=== PATIENT | female | born 1955 | race Caucasian/White ===

== ENCOUNTER 2018-09-07 02:27 | Outpatient (CLI) | payer BC, SELFPAY ==
[2018-09-07 11:45] LABS: Anion Gap 7.4 mmol/L (3-11); BUN 13 mg/dL (7-18); CO2 29.6 mmol/L (21.0-32.0); Calcium 9.1 mg/dL (8.5-10.1); Chloride 103 mmol/L (98-107); Cholesterol 244 mg/dL (50-200); Glucose 90 mg/dL (70-100); HDL Cholesterol 51 mg/dL (40-60); LDL CHOLESTEROL 166 mg/dL (<100); Sodium 140 mmol/L (136-145); Triglyceride 129 mg/dL (30-150)
== END 2018-09-07 02:47 ==
PROVIDERS: PCP Nurse Practitioner Family; Visit Provider Nurse Practitioner Family
DX: Z00.00 Encounter for general adult medical examination without abnormal findings (principal); E78.5 Hyperlipidemia, unspecified; J45.30 Mild persistent asthma, uncomplicated
CPT/HCPCS: 36415; 80048; 80061; 83721

== ENCOUNTER 2019-02-15 01:46 | Outpatient (CLI) | payer BC, SELFPAY ==
--- NOTE | 2019-02-15 06:58 | DI.MAMMO_ITS ---
SYMPTOM/DIAGNOSIS: SCREENING, Z12.31 MAMMOGRAMS: Mammograms were interpreted according to the usual protocol including computer analysis with CAD system, tomosynthesis and C view imaging. Comparison is made with exams from [id number]. The breasts are composed of fatty density tissue, breast density, Category A. No suspicious masses or suspicious microcalcifications are seen. There has been no significant change. IMPRESSION: Category1, negative mammogram. Yearly screening mammography is recommended. SA ASSESSMENT OF FINDINGS: Negative. Category 1. Patient will receive a letter notifying them of these results. bBI-RAD category A. The breasts are almost entirely fatty.
== END 2019-02-15 02:06 ==
PROVIDERS: PCP Nurse Practitioner Family; Visit Provider Nurse Practitioner Family
DX: Z12.31 Encounter for screening mammogram for malignant neoplasm of breast (principal)
CPT/HCPCS: 77063; 77067

== ENCOUNTER 2019-09-02 09:13 | Outpatient (CLI) | payer BC, SELFPAY ==
[2019-09-02 10:21] LABS: Hemoglobin A1C 6.1 % (4.5-6.2)
[2019-09-02 13:08] LABS: Anion Gap 9.8 mmol/L (3-11); BUN 11 mg/dL (7-18); CO2 28.2 mmol/L (21.0-32.0); CREATININE 0.77 mg/dL (0.55-1.02); Calcium 9.1 mg/dL (8.5-10.1); Calculated LDL 167 mg/dL; Chloride 103 mmol/L (98-107); Cholesterol 247 mg/dL (<200); Glucose 101 mg/dL (74-106); HDL Cholesterol 52 mg/dL (40-60); Potassium 4.3 mmol/L (3.5-5.1); Sodium 141 mmol/L (136-145); Triglyceride 140 mg/dL (<150)
== END 2019-09-02 09:33 ==
PROVIDERS: PCP Nurse Practitioner Family; Visit Provider Nurse Practitioner Family
DX: E78.5 Hyperlipidemia, unspecified (principal)
CPT/HCPCS: 36415; 80048; 80061; 83036

== ENCOUNTER 2019-09-27 10:52 | Outpatient (REF) | payer BC, SELFPAY ==
--- NOTE | 2019-09-27 10:30 | PAPFT_PTH ---
PATIENT: Kesha Lagos LOC: [facility] U#:[id number] AGE/SX: 63/F ROOM: RE09/27/[address]: RAFA Armstrong : 1955 BED: DIS: 09/27/2019 SPEC #: [id number] RECD: 09/27/19 13:03 STATUS: BUD REPavan #: [id number] RANDALL: 09/27/19 10:[address]: Adenike Harrell DEPT: [facility] Cytology RECD BY: Miladis Morel ENTERED: 09/27/19 13:03 SP TYPE: PAPFT OTHR DR: RAFA Cruz Tissues: 1 - CX/ENDOCX FOR PAP SMEARS Procedures: PAP THIN PREP/UVM Screening HPV DNA PROBE Comments: [id number]
== END 2019-09-27 11:12 ==
LOC: LBN 10:52
PROVIDERS: PCP Nurse Practitioner Family; Visit Provider Nurse Practitioner Family
DX: Z12.4 Encounter for screening for malignant neoplasm of cervix (principal); Z11.51 Encounter for screening for human papillomavirus (HPV)
CPT/HCPCS: 88142; 87624

== ENCOUNTER 2019-11-30 02:06 | Outpatient (CLI) | payer BC, SELFPAY ==
--- NOTE | 2019-11-30 14:28 | DI.CT_ITS ---
EXAM: CT SINUS WO CLINICAL HISTORY: NASAL POLYP J33.9, HYPOSMIA R43.8 TECHNIQUE: Noncontrast Vormetric protocol COMPARISON: No exams were available for comparison FINDINGS: There is circumferential mucosal thickening of both maxillary sinuses. There is opacification of mult iple ethmoid sinuses. The frontal and sphenoid sinuses are unremarkable. There are nasal polyps and t hickening of the nasal mucosa. The orbits are unremarkable. No gross abnormalities seen in the visua lized portions of the brain. The mastoid air cells appear clear. IMPRESSION: Nasal polyps. Ethmoid and maxillary chronic sinus disease.
== END 2019-11-30 02:26 ==
PROVIDERS: PCP Nurse Practitioner Family; Visit Provider Otolaryngology Otolaryngology/Facial Plastic Surgery
DX: J33.9 Nasal polyp, unspecified (principal); R43.8 Other disturbances of smell and taste; J32.2 Chronic ethmoidal sinusitis; J32.0 Chronic maxillary sinusitis
CPT/HCPCS: 70486

== ENCOUNTER 2020-02-17 02:03 | Outpatient (CLI) | payer BC, SELFPAY ==
--- NOTE | 2020-02-17 07:45 | DI.MAMMO_ITS ---
EXAM: MG MAMMO SCREENING CLINICAL HISTORY: Z12.39 TECHNIQUE: Bilateral full field digital CC and MLO mammographic images were obtained with 3D tomosyn thesis and utilizing computer aided detection (CAD). COMPARISON: Available for comparison. FINDINGS: Masses/Architectural Distortion: None seen. Microcalcifications: No suspicious pleomorphic-type are seen. Skin Thickening/Nipple Retraction: None. IMPRESSION: 1. No significant interval change with no specific features of malignancy noted. 2. Unless there is more urgent need, screening mammography is recommended, as per [place] [employer] guidelines. BI-RADS Category 1 - Negative Breast Density - Category A - Almost entirely fatty A negative radiographic report should not delay biopsy if a dominant or clinically suspicious mass is present. Up to ten percent of cancers are not identified on mammography. A negative report may reinforce clinical impression. Adenosis and dense breasts may obscure an underlying neoplasm. False positive reports average 6 to 10%. Patient will receive a letter notifying them of these results.
== END 2020-02-17 02:23 ==
PROVIDERS: PCP Nurse Practitioner Family; Visit Provider Nurse Practitioner Family
DX: Z12.31 Encounter for screening mammogram for malignant neoplasm of breast (principal)
CPT/HCPCS: 77063; 77067

== ENCOUNTER 2020-03-28 02:46 | Outpatient (CLI) | payer BC, SELFPAY ==
[2020-03-29 23:47] LABS: Alternaria Tenuis IgE <0.35 kU/L; Aspergillus Fumigatus IgE <0.35 kU/L; Bermuda Grass IgE <0.35 kU/L; Cockroach IgE <0.35 kU/L; Cottonwood IgE <0.35 kU/L; D Farinae IgE 1.82 kU/L; D Pteronyssinus IgE 1.47 kU/L; Eastern Sycamore IgE <0.35 kU/L; Elm IgE <0.35 kU/L; Epicoccum purpurascens IgE <0.35 kU/L; Giant Ragweed IgE <0.35 kU/L; Oak IgE <0.35 kU/L; Penicillium chrysogenum IgE <0.35 kU/L; Red Sorrel IgE <0.35 kU/L; Rough Pigweed IgE <0.35 kU/L; Silver Birch IgE 5.57 kU/L; Stemphyllium IgE <0.35 kU/L; Walnut Tree IgE <0.35 kU/L
[2020-03-30 17:27] LABS: Cat Epithelium IgE <0.35 kU/L; Cladosporium IgE <0.35 kU/L; Cocklebur IgE <0.35 kU/L; Dog Dander IgE <0.35 kU/L; Lamb's Quarter IgE <0.35 kU/L; Short Ragweed IgE <0.35 kU/L; Timothy Grass IgE <0.35 kU/L; Wormwood IgE <0.35 kU/L
[2020-04-05 18:14] LABS: CLASS 0; Cedar Red IgE <0.10 kU/L (<0.35); Fusarium oxysporum/vasinfectum <0.35 kU/L (<0.35); Rhodotorula IgE <0.35 kU/L (<0.35)
== END 2020-03-28 03:06 ==
PROVIDERS: PCP Nurse Practitioner Family; Visit Provider Otolaryngology Otolaryngology/Facial Plastic Surgery
DX: J45.40 Moderate persistent asthma, uncomplicated (principal)
CPT/HCPCS: 36415; 86003

== ENCOUNTER 2020-09-14 20:51 | Outpatient (REF) | payer BC, SELFPAY ==
[2020-09-14 14:49] LABS: Anion Gap 5.4 mmol/L (3-11); BUN 12 mg/dL (7-18); CO2 28.6 mmol/L (21.0-32.0); CREATININE 0.83 mg/dL (0.55-1.02); Calcium 9.1 mg/dL (8.5-10.1); Calculated LDL 170 mg/dL (<100); Chloride 105 mmol/L (98-107); Cholesterol 256 mg/dL (<200); Glucose 107 mg/dL (74-106); HDL Cholesterol 55 mg/dL (40-60); Potassium 4.7 mmol/L (3.5-5.1); Sodium 139 mmol/L (136-145); Triglyceride 155 mg/dL (<150)
[2020-09-14 16:39] LABS: Hemoglobin A1C 5.6 % (<5.7)
== END 2020-09-14 21:11 ==
LOC: LBN 20:51
PROVIDERS: PCP Nurse Practitioner Family; Visit Provider Nurse Practitioner Family
DX: E78.5 Hyperlipidemia, unspecified (principal); R73.03 Prediabetes
CPT/HCPCS: 80048; 80061; 83036

== ENCOUNTER 2021-02-19 00:53 | Outpatient (CLI) | payer BC, SELFPAY ==
--- NOTE | 2021-02-19 06:30 | DI.MAMMO_ITS ---
Exam(s) MAMMO SCREENING EXAM: MAMMO SCREENING CLINICAL HISTORY: screening,z12.39. TECHNIQUE: Bilateral full field digital CC and MLO mammographic images were obtained with 3D tomosyn thesis and utilizing computer aided detection (CAD). COMPARISON: Prior mammograms dating back to 2011, the most recent being January 2020. FINDINGS: There are no new spiculated masses nor malignant appearing microcalcification groups. There is no significant architectural distortion nor skin thickening-retraction. IMPRESSION: No radiographic evidence of malignancy. BI-RADS Category 1 - Negative Breast Density - Category A - Almost entirely fatty Breast density Category C or D implies that the patient has dense breast tissue. Dense breast tissue can make it harder to find cancer on a mammogram. Dense breast tissue is also associated with an incr eased risk of breast cancer. This information about the result of the mammogram report was provided to the patient to raise their awareness. Use this report when you speak with the patient about their risks for breast cancer, which includes their family history. At that time, you may recommend additional screening tests (Ultrasoun d or MRI) as these tests may add significant information. A negative radiographic report should not delay biopsy if a dominant or clinically suspicious mass is present. Up to ten percent of cancers are not identified on mammography. A negative report may reinforce clinical impression. Adenosis and dense breasts may obscure an underlying neoplasm. False positive reports average 6 to 10%. Patient will receive a letter notifying them of these results.
== END 2021-02-19 01:13 ==
PROVIDERS: PCP Nurse Practitioner Family; Visit Provider Nurse Practitioner Family
DX: Z12.31 Encounter for screening mammogram for malignant neoplasm of breast (principal)
CPT/HCPCS: 77063; 77067

== ENCOUNTER 2021-09-03 19:17 | Outpatient (REF) | payer BC, SELFPAY ==
[2021-09-05 17:20] LABS: COVID-19 RT-PCR UVMMC Result Negative (Negative)
== END 2021-09-03 19:18 | disposition home or self-care (01) ==
LOC: LBN 19:17
PROVIDERS: PCP Nurse Practitioner Family; Visit Provider Family Medicine
DX: Z20.822 Contact with and (suspected) exposure to COVID-19 (principal); R50.9 Fever, unspecified
CPT/HCPCS: U0003

== ENCOUNTER 2021-10-31 03:30 | Outpatient (CLI) | payer BC, SELFPAY ==
[2021-10-31 10:08] LABS: Anion Gap 11.2 mmol/L (3-11); BUN 10 mg/dL (7-18); CO2 25.8 mmol/L (21.0-32.0); CREATININE 0.8 mg/dL (0.55-1.02); Calcium 9.2 mg/dL (8.5-10.1); Calculated LDL 133 mg/dL (<100); Chloride 104 mmol/L (98-107); Cholesterol 212 mg/dL (<200); Glucose 95 mg/dL (74-106); HDL Cholesterol 47 mg/dL (40-60); Potassium 4.1 mmol/L (3.5-5.1); Sodium 141 mmol/L (136-145); Triglyceride 164 mg/dL (<150)
== END 2021-10-31 03:31 | disposition home or self-care (01) ==
LOC: LBO 03:30
PROVIDERS: PCP Nurse Practitioner Family; Visit Provider Nurse Practitioner Family
DX: E78.5 Hyperlipidemia, unspecified (principal)
CPT/HCPCS: 36415; 80048; 80061

== ENCOUNTER 2022-02-20 03:39 | Outpatient (CLI) | payer BC, SELFPAY ==
--- NOTE | 2022-02-20 07:44 | DI.MAMMO_ITS ---
Exam(s) MAMMO SCREENING EXAM: MAMMO SCREENING CLINICAL HISTORY: screening, Z12.39 TECHNIQUE: Bilateral full field digital CC and MLO mammographic images were obtained with 3D tomosyn thesis and utilizing computer aided detection (CAD). COMPARISON: Available for comparison. FINDINGS: Masses/Architectural Distortion: None seen. Microcalcifications: No suspicious pleomorphic-type are seen. Skin Thickening/Nipple Retraction: None. IMPRESSION: 1. No significant interval change with no specific features of malignancy noted. 2. Unless there is more urgent need, screening mammography is recommended, as per [place] [employer] guidelines. BI-RADS Category 1 - Negative Breast Density - Category A - Almost entirely fatty Breast density category C or D implies that the patient has dense breast tissue. Dense breast tissue is very common and is not abnormal but dense breast tissue can make it harder to find cancer on a ma mmogram. Also, dense breast tissue may increase their breast cancer risk. This information about the result of the mammogram report was provided to the patient to raise their awareness. Use this report when you speak with the patient about their risks for breast cancer, which includes their family hist ory. At that time, you may recommend for more screening tests (Ultrasound or MRI) as they might be us eful based on their risk. A negative radiographic report should not delay biopsy if a dominant or clinically suspicious mass is present. Up to ten percent of cancers are not identified on mammography. A negative report may reinforce clinical impression. Adenosis and dense breasts may obscure an underlying neoplasm. False positive reports average 6 to 10%. Patient will receive a letter notifying them of these results.
== END 2022-02-20 03:59 ==
PROVIDERS: PCP Nurse Practitioner Family; Visit Provider Nurse Practitioner Family
DX: Z12.31 Encounter for screening mammogram for malignant neoplasm of breast (principal)
CPT/HCPCS: 77063; 77067

== ENCOUNTER 2022-07-29 08:55 | Day surgery (SDC) | payer BC, SELFPAY ==
--- NOTE | 2022-07-29 06:42 | W.COLOREPORT ---
Date of service: 07/29/22 Time of Service: 11:08 Colonoscopy Report Date of procedure: 07/29/22 Pre-op diagnosis general: colon cancer screening Post-op diagnosis procedure note: same Procedure: Colonoscopy Surgeon: Carrie Ha Anesthesia Type: General:No Airway Estimated blood loss (mL): 0 Pathology: none sent Complications: None Disposition: same day Indications: The patient? is a pleasant ? 66-year-old female who is here to discuss another screening colonoscopy. ? Her last colonoscopy was in 2009 and was normal.? She denies any changes in bowel habits, melena, hematochezia, unintentional weight loss or family history of colon cancer.? The procedure and risks were discussed.? The prep was reviewed in detail.? Risks, benefits and complications have been reviewed. Complications include but are not limited to bleeding, pain, perforation, missed small lesion/polyp, sore throat, aspiration and adverse reaction to the medications. Questions were entertained and answered to their satisfaction and they wished to proceed. No guarantees were given or implied. Prep: Miralax/Dulcolax Procedure Start Time: :08 Procedure End Time: :24 Retraction Time: 9 minutes Findings: Normal colon Procedure Description: After informed consent was obtained the patient was taken to the procedure room and placed in a left decubitous position. Monitors were applied and a time out was done. The patients name, date of , procedure, allergies to medications and metal in their body was reviewed. The patient was then sedated. Once sedated and comfortable a rectal exam was done. External exam was normal. Internal exam revealed a normal sphincter tone and no palpable masses. The scope was then introduced and retro-flexed. No internal hemorrhoids, polyps or masses were identified on retro-flexion. The scope was then advanced to the cecum without difficulty. The ileocecal vlave and appendiceal orifice were identified. The prep was adequate. The scope was then slowly retracted over 9 minutes back into the rectum. There were no polyps. There was no diverticulosis noted. The scope was removed and the patient was woken up and taken back to Same day surgery in stable condition. The patient tolerated the procedure well and there were no immediate complications. Follow up: The patient should follow up in 10 years unless they develop changes in bowel habits or other new gastrointestinal complaints.
--- NOTE | 2022-07-29 06:43 | W.PM.DSUDISC ---
Date of service: 07/29/22 Time of Service: 11:08 Discharge Plan Disposition Patient Disposition: HOME Condition: Good Discharge Details Reason For Visit: colonoscopy Attending Provider: Carrie Ha Primary Care Provider: Farnaz Riddle Home Meds and New Rx's Prescriptions: Continued fluticasone propionate [Flovent HFA] 110 mcg/actuation HFA aerosol inhaler 1 puff Inhalation BID Qty: 12 6RF albuterol sulfate 90 mcg/actuation HFA aerosol inhaler 2 puff Inhalation Q4H PRN Qty: 8.5 4RF albuterol sulfate 2.5 mg /3 mL (0.083 %) solution for nebulization 2.5 mg IH Q6H PRN (Reason: shortness of breath or wheezing) Qty: 90 4RF fluticasone propionate [Allergy Relief (fluticasone)] 50 mcg/actuation spray,suspension 2 spray intranasal DAILY PRN Rx Instructions: administer into each nostril Discontinued polyethylene glycol 3350 17 gram/dose powder 238 g PO ONCE Qty: 238 0RF Rx Instructions: take per colonoscopy instructions bisacodyl [Dulcolax (bisacodyl)] 5 mg tablet,delayed release (DR/EC) 5 mg PO ONCE Qty: 4 0RF Rx Instructions: take per colonoscopy instructions Discharge Instructions Additional Instructions: Findings: Normal Follow up: 10 years Please call if you develop: fevers >101.5 Nausea or Vomiting Abdominal pain that is not transient Rectal bleeding that is more then a tbsp A hard abdomen and inability to pass gas DAY SURGERY UNIT POST ENDOSCOPY INSTRUCTIONS Instructions for everyone who is given Anesthesia: For your safety, please do the following for the next 24 Hours: a. Do not drive or operate dangerous equipment b. Do not drink alcohol beverages or use any recreational drugs for the first 24 hours or while taking pain medications. The medications in your body may have a reaction that can be dangerous. c. Do not make any important decisions or sign any important papers 1. Generally there are no restrictions on your activity after a day or so has gone by, but you may feel a bit fatigued for a few days. 2. After you arrive home you may have a light meal and return to a normal diet as you can tolerate it without feeling sick to your stomach. 3. After surgery, you may feel pain or discomfort. This should be only transient, but if it persists please contact your doctor. 4. If there are any questions regarding the findings of your procedure, please feel free to contact your doctor. 6. If you are unable to contact your doctor with a problem, contact the hospital at [phone]. 7. Continue all your regular medications unless directed otherwise. I understand the above instructions and have no questions. Signature of Patient or Responsible Adult Escort Date/Time Name of Responsible Adult Escort Signature of Nurse Date/Time Activity:: Activity as Tolerated Diet:: As Tolerated Discharge Orders Discharge Orders: Discharge Order (Routine); Ordered 07/29/22 Ordered By: Carrie Ha
[2022-07-29 09:23] VITALS: BP 158/99; PULSE 89; RESP 16; TEMP 36.4; O2SAT 98
[2022-07-29] MEDS: Lactated Ringers 1,000 ML 80 ML IV (09:34)
--- NOTE | 2022-07-29 10:26 | W.ANESPRE ---
General Info Date of Service Date Performed: 07/29/22 Height: 5 ft 2 in Weight: 69.1 kg Body Mass Index (BMI): 27.8 Surgical Procedure: Operation Date: 07/29/22 10:35 Proposed Procedure Side Surgeon p Colonoscopy Carrie Ha MD Meds Allergies and Home Medications Allergies Allergy/AdvReac Type Severity Reaction Status Date / Time varicella-zoster virus Allergy Intermediate Face Verified 07/29/22 09:32 glycoprotein E, recombinant Numbness Latex, Natural Rubber Allergy Mild Verified 07/29/22 09:32 Home Medication Medication Instructions Recorded albuterol sulfate 2.5 mg/3 mL 2.5 mg (3 mL) inhalation Q6H PRN 09/02/19 (0.083 %) solution for nebulization shortness of breath or wheezing #90 mL fluticasone propionate 50 2 spray intranasal DAILY PRN 09/24/21 mcg/actuation nasal spray,suspension (Allergy Relief (fluticasone)) bisacodyl 5 mg tablet,delayed 5 mg PO ONCE colonscopy bowel prep 07/09/22 release (Dulcolax (bisacodyl)) #4 tabs polyethylene glycol 3350 17 238 g PO ONCE colonoscopy prep 07/09/22 gram/dose oral powder #238 grams albuterol sulfate 90 mcg/actuation 2 puff inhalation Q4H PRN #8.5 07/18/22 aerosol inhaler grams fluticasone propionate 110 1 puff inhalation BID #12 grams 07/18/22 mcg/actuation HFA aerosol inhaler (Flovent HFA) Current Visit Medications: Current Medications Generic Name Dose Route Start Last Admin Trade Name Freq PRN Reason Stop Dose Admin Hyoscyamine Sulfate 0.125 mg 07/29/22 06:44 Hyoscyamine 0.125 Mg Sl/Oral/Chew SL DIRECTED PRN Ringer's Solution 1,000 mls @ 80 mls/hr 07/29/22 06:00 07/29/22 09:34 IV 08/25/22 23:59 80 mls/hr INFUSION JESSA Administration IV Miscellaneous Supplies 1 each 07/29/22 06:00 Iv Access IV 08/25/22 23:59 DIRECTED JESSA Ondansetron HCl 4 mg 07/29/22 06:44 Ondansetron 4 Mg/2 Ml Vial IVP Q4H PRN PRN Nausea / Vomiting Sodium Chloride 0 ml 07/29/22 06:00 Normal Saline Flush 10 Ml Syr IV 08/25/22 23:59 PRN PRN Sodium Chloride 0 ml 07/29/22 06:00 Normal Saline 10 Ml Vial IJ 08/25/22 23:59 DIRECTED PRN Sterile Water 0 ml 07/29/22 06:00 Water,Injection,Sterile 10 Ml Vial IJ 08/25/22 23:59 DIRECTED PRN PFSH Active Problems Active Problems: Problem Status Onset Code Nasal polyps J33.9 Chronic rhinitis J31.0 Mild persistent asthma J45.30 Hyperlipidemia E78.5 Medical History Medical History Essential hypertension Prediabetes Surgical History Surgical History S/P colonoscopy (08/29/10) S/P nasal septoplasty (02/06/04) With bilateral endoscopic anterior and posterior ethmoidectomies Tobacco Smoking/Tobacco Use Status: Never Passive smoking exposure: Yes Second hand exposure: Yes Alcohol Alcohol Intake: never Substance Use Substance use: Never Prental History History 3 Para 3 Hx # Term Pregnancies 3 Multiple births Hx # Pregnancies Ectopic pregnancies AB induced Hx Number of Living Children 2 AB spontaneous Vital Signs and Lab Results Vital Signs Most Recent Vital Signs in EMR: Most Recent Vital Signs Temp Pulse Resp BP Pulse Ox 36.4 C L 89 16 158/99 H 98 07/29/22 09:23 07/29/22 09:23 07/29/22 09:23 07/29/22 09:23 07/29/22 09:23 Lab Results Blood Type / Crossmatch: No Data to Display Complete Blood Count: No Data to Display Complete Metabolic Panel: No Data to Display Liver Function Panel: No Data to Display Coagulation Panel: No Data to Display Cardiac Panel: No Data to Display Arterial Blood Gas: No Data to Display Venous Blood Gas: No Data to Display Pancreas Panel: No Data to Display Thyroid Panel: No Data to Display Infectious Disease: No Data to Display Blood Cultures: No Data to Display Toxicology Panel: No Data to Display Anesthesia Assessment and Plan Anesthesia History Personal History: No History of Anesthesia Complications Family History: No Family History of Anesthesia Complications Exercise Tolerance Exercise Tolerance: Metabolic Equivalents>4 Pertinent Negatives Pertinent Negatives: No Symptoms of GERD Cardiac & Pulmonary Exam Cardiac Exam: Normal S1/S2 Heart Sounds Pulmonary Exam: Clear Bilateral Breath Sounds Implantable Cardiac Device Does patient have a Pacemaker or an ICD?: No Airway Exam Known Difficult Airway: No Mallampati Class: 1 Mouth Opening: Normal (> 3cm) Thyromental Distance: Greater than 3 cm Neck Range of Motion: Full ROM Neck Circumference: Normal Teeth Condition: Removable Dentures/Plates Upper ASA Classification ASA Score: ASA 2 Emergency Case?: No NPO Status NPO Status: NPO Clears >2 hours, Solids >8 hours Anesthesia Plan Resuscitation Status: Full Code Anesthesia Technique: General Anesthesia Airway Planned: Natural Airway Monitors Used: Standard Monitors
[2022-07-29 10:28] VITALS: BMI 27.8
[2022-07-29 11:30] VITALS: BP 127/89; PULSE 96; RESP 18; TEMP 36.3; O2SAT 96
[2022-07-29 11:48] VITALS: BP 128/97; PULSE 86; RESP 18; TEMP 36.5; O2SAT 99
--- NOTE | 2022-07-29 11:54 | W.ANESPOSTOP ---
Postoperative Evaluation Date, Time and Location Date Performed: 07/29/22 Time Performed: 11:52 Patient Location: Day Surgery Unit Vital Signs Most Recent Imported Vital Signs: Most Recent Vital Signs Temp Pulse Resp BP Pulse Ox 36.5 C 86 18 128/97 H 99 07/29/22 11:48 07/29/22 11:48 07/29/22 11:48 07/29/22 11:48 07/29/22 11:48 Pain Score Most Recent Pain Score: Most Recent Pain Score Pain Level 2 07/29/22 11:48 Assessment Mental Status: Awake (Alert & Oriented to Patient Baseline) Airway and Respiratory Function: Patent airway with normal (patient baseline) respiratory exam Cardiovascular Function: Hemodynamically Stable Hydration Status: Adequately Hydrated Nausea & Vomiting: No Nausea or Vomiting Pain: Pt. Denies Any Pain Peripheral Nerve Block: Patient did not receive a nerve block
== END 2022-07-29 11:54 | disposition home or self-care (01) ==
PROVIDERS: PCP Nurse Practitioner Family; Visit Provider Surgery
PROC: 0DJD8ZZ Inspection of Lower Intestinal Tract, Via Natural or Artificial Opening Endoscopic (ICD-10-PCS; CPT 45378; principal; 2022-07-29 10:30)
DX: Z12.11 Encounter for screening for malignant neoplasm of colon (principal)
CPT/HCPCS: 45378

== ENCOUNTER 2023-01-16 10:13 | Outpatient (CLI) | payer MEDICARE, SELFPAY ==
[2023-01-16 12:41] LABS: HCT 42.8 % (36.0-46.0); HGB 13.5 g/dL (11.2-15.7); MCH 28.5 pg (27.0-33.0); MCHC 31.5 % (32.0-36.0); MCV 91 fL (80-95); MPV 9.2 fL (8.0-11.0); Platelet Count 371 10^3/uL (130-400); RBC 4.73 10^6/uL (3.93-5.22); RDW 12.5 % (11.7-14.6); RDW-SD 41.1 fL; WBC 6.07 10^3/uL (4.4-10.8)
[2023-01-16 13:32] LABS: ALT 26 U/L (14-59); AST 17 U/L (15-37); Alkaline Phosphatase 107 U/L (46-116); Anion Gap 8.4 mmol/L (3-11); BUN 9 mg/dL (7-18); Bilirubin, Total 0.3 mg/dL (0.2-1.0); CO2 27.6 mmol/L (21.0-32.0); CREATININE 0.8 mg/dL (0.55-1.02); Calcium 8.9 mg/dL (8.5-10.1); Calculated LDL 142 mg/dL (<100); Chloride 104 mmol/L (98-107); Cholesterol 228 mg/dL (<200); Estimated GFR 81.72 (mL/min/1.73m2); Glucose 109 mg/dL (74-106); HDL Cholesterol 47 mg/dL (40-60); Potassium 4.4 mmol/L (3.5-5.1); Sodium 140 mmol/L (136-145); Total Protein 7.9 g/dL (6.4-8.2); Triglyceride 198 mg/dL (<150)
== END 2023-01-16 10:14 | disposition home or self-care (01) ==
LOC: LOS 10:13
PROVIDERS: PCP Nurse Practitioner Family; Referring Provider Nurse Practitioner Family; Visit Provider Nurse Practitioner Family
DX: I10 Essential (primary) hypertension (principal); E78.5 Hyperlipidemia, unspecified; J45.30 Mild persistent asthma, uncomplicated; J31.0 Chronic rhinitis
CPT/HCPCS: 36415; 80053; 80061; 85027

== ENCOUNTER 2023-02-10 09:54 | Outpatient (REF) | payer MEDICARE, SELFPAY ==
--- NOTE | 2023-02-10 09:00 | PAPFT_PTH ---
PATIENT: Kesha Lagos LOC: [facility] U#:[id number] AGE/SX: 67/F ROOM: RE02/10/[address]: Radha Weaver NP : 1955 BED: DIS: 02/10/2023 SPEC #: [id number] RECD: 02/10/23 13:20 STATUS: BUD REPavan #: [id number] RANDALL: 02/10/23 09:[address]: Meg HUERTA,Radha DEPT: [facility] Cytology RECD BY: Miladis Morel ENTERED: 02/10/23 13:21 SP TYPE: PAPFT OTHR DR: Farnaz Riddle, RAFA Tissues: 1 - CX/ENDOCX FOR PAP SMEARS Procedures: PAP THIN PREP/UVM Screening HPV DNA PROBE Comments: [id number]
== END 2023-02-10 09:55 | disposition home or self-care (01) ==
LOC: LBN 09:54
PROVIDERS: PCP Nurse Practitioner Family; Visit Provider Nurse Practitioner Women's Health
DX: Z11.51 Encounter for screening for human papillomavirus (HPV); Z01.419 Encounter for gynecological examination (general) (routine) without abnormal findings
CPT/HCPCS: 88142; 87624

== ENCOUNTER 2023-02-21 00:13 | Outpatient (CLI) | payer MEDICARE, SELFPAY ==
--- NOTE | 2023-02-21 06:30 | DI.MAMMO_ITS ---
Exam(s) MAMMO SCREENING EXAM: MAMMO SCREENING CLINICAL HISTORY: screening,z12.39. TECHNIQUE: Bilateral full field digital CC and MLO mammographic images were obtained with 3D tomosyn thesis and utilizing computer aided detection (CAD). COMPARISON: Prior mammograms were reviewed. FINDINGS: There has been no significant change in the appearance and distribution of the fibroglandular tissue. There are no new spiculated masses nor malignant appearing microcalcification groups. There is no significant architectural distortion nor skin thickening-retraction. IMPRESSION: No radiographic evidence of malignancy. BI-RADS Category 1 - Negative Breast Density - Category A - Almost entirely fatty Breast density Category C or D implies that the patient has dense breast tissue. Dense breast tissue can make it harder to find cancer on a mammogram. Dense breast tissue is also associated with an incr eased risk of breast cancer. This information about the result of the mammogram report was provided to the patient to raise their awareness. Use this report when you speak with the patient about their risks for breast cancer, which includes their family history. At that time, you may recommend additional screening tests (Ultrasoun d or MRI) as these tests may add significant information. A negative radiographic report should not delay biopsy if a dominant or clinically suspicious mass is present. Up to ten percent of cancers are not identified on mammography. A negative report may reinforce clinical impression. Adenosis and dense breasts may obscure an underlying neoplasm. False positive reports average 6 to 10%. Patient will receive a letter notifying them of these results.
== END 2023-02-21 00:33 ==
PROVIDERS: PCP Nurse Practitioner Family; Visit Provider Nurse Practitioner Family
DX: Z12.31 Encounter for screening mammogram for malignant neoplasm of breast (principal)
CPT/HCPCS: 77063; 77067

== ENCOUNTER 2023-04-04 01:18 | Outpatient (CLI) | payer MEDICARE, SELFPAY ==
--- NOTE | 2023-04-04 07:15 | DI.RAD_ITS ---
Exam(s) XR CHEST 2V PA LATERAL EXAM: XR CHEST 2V PA LATERAL CLINICAL HISTORY: cough, mild persistent asthma, J45.30 TECHNIQUE: 2D digital imaging was performed. COMPARISON: CR CHEST 2 VIEWS PA,LAT from 07/18/2015 FINDINGS: HEART: Normal size. Aorta: Not dilated. PULMONARY VASCULATURE: Normal. LUNGS: Mild fibrotic changes greater at the lung bases, otherwise clear. PLEURAL SPACE: No pleural effusion or pneumothorax. BONE:Unremarkable for age. IMPRESSION: No acute abnormality. DATA REPOSITORY: RADIATION DOSE DELIVERED:
== END 2023-04-04 01:38 ==
LOC: DI 01:18
PROVIDERS: PCP Nurse Practitioner Family; Visit Provider Physician Assistant
DX: J45.30 Mild persistent asthma, uncomplicated (principal)
CPT/HCPCS: 71046

== ENCOUNTER 2023-06-25 22:39 | Outpatient (REF) | payer MEDICARE, SELFPAY | END 2023-06-25 22:40 | disposition home or self-care (01) | LOC: LBN 22:39 | PROVIDERS: PCP Nurse Practitioner Family; Visit Provider Nurse Practitioner Family | DX: J02.9 Acute pharyngitis, unspecified (principal) | CPT/HCPCS: 87070 ==

== ENCOUNTER 2023-07-09 04:57 | Emergency (ER) | payer MEDICARE, SELFPAY ==
[2023-07-09] VITALS (9 sets, daily range): BP systolic 115–180; BP diastolic 89–142; PULSE 90–109; RESP 18–20; TEMP 36.6; O2SAT 92–100
--- NOTE | 2023-07-09 05:11 | ED.GENADUL_ITS ---
Discharge Plan Disposition Patient Disposition: Home Condition: Stable Discharge Details Clinical Impression: Asthma exacerbation Primary Care Provider: Farnaz Riddle ED Provider: Randolph Weaver Home Meds and New Rx's Prescriptions: New prednisone 20 mg tablet 60 mg PO DAILY 5 Days Qty: 15 0RF Continued albuterol sulfate 90 mcg/actuation HFA aerosol inhaler 2 puff Inhalation Q4H PRN Qty: 8.5 4RF albuterol sulfate 2.5 mg /3 mL (0.083 %) solution for nebulization 2.5 mg IH Q6H PRN (Reason: shortness of breath or wheezing) Qty: 90 4RF fluticasone propionate [Flovent HFA] 110 mcg/actuation HFA aerosol inhaler 1 puff Inhalation BID Qty: 12 6RF fluticasone propionate [Allergy Relief (fluticasone)] 50 mcg/actuation spray,suspension 2 spray intranasal DAILY PRN Rx Instructions: administer into each nostril fluticasone propionate [Flonase Allergy Relief] 50 mcg/actuation spray,suspension 1 spray intranasal BID 90 Days Qty: 3 3RF Rx Instructions: administer into each nostril Discharge Instructions Instructions: Asthma (ED) Additional Instructions: follow up with your primary care provider within 1 week if you feel more ill or have more difficulty breathing return to the emergency department Medical Decision Making 67 yo female with hx of asthma who comes in with complaint of 2 days of shortness of breath and wheezing. Denies chest pain/pressure, fevers, chills, n/v, abdominal pain. Has been using home nebs without significant change so came here. She has stable vitals on arrival, no hypoxia. She is caox4 and able to speak in full sentences. She does have diffuse wheezing bilaterally in all lung crespo, no murmurs, no jvd, no leg swelling or calf tenderness. Given her history and presentation will treat for asthma exacerbation with solumedrol as nursing has already placed an iv and duoneb and reassess, will also obtain poc covid/flu. She has no chest pain, no jvd and no leg swelling so doubt acs or chf and no hypoxia, evidence of dvt or significant tachycardia so doubt PE at this time. Appears well and no fevers and cough is dry so doubt pneumonia, do not feel cxr indicated. covid and flu poc negative, she feels significantly better though on lung exam still has diffuse wheezing, will treat with another neb and reassess. pt feels much better, lungs now clear and she is requesting d/c, o2 sat on room air 99%. Will start on prednisone and advised to f/u with her pcp, return precautions given Differential Diagnosis Differential Diagnosis: asthma exacerbation, covid, flu Medical Records Medical records reviewed: Yes I reviewed the patient's medical records. HPI General Mode of arrival: ambulatory . Date/Time Provider Initiated Documentation: 07/09/23 04:58 . Limitations to Documentation: no limitations . Information obtained by: patient . History of Present Illness 67 year old F presents to the emergency department with the chief complaint of wheezing, described as moderate, Patient started experiencing this day(s) (2) and it has been constant. No relieving factors improve symptom(s), No exacerbating factors reported . Patient notes cough; denies chest pain, diaphoresis and fever/chills. Patient did receive the following treatments prior to arrival, none Related Data Home Medications Medication Instructions Recorded Confirmed fluticasone propionate 50 2 spray intranasal DAILY PRN 09/24/21 06/25/23 mcg/actuation nasal spray,suspension (Allergy Relief (fluticasone)) albuterol sulfate 90 mcg/actuation 2 puff inhalation Q4H PRN #8.5 07/18/22 06/25/23 aerosol inhaler grams albuterol sulfate 2.5 mg/3 mL 2.5 mg (3 mL) inhalation Q6H PRN 03/28/23 06/25/23 (0.083 %) solution for nebulization shortness of breath or wheezing #90 mL fluticasone propionate 50 1 spray intranasal BID 90 days #3 05/16/23 06/25/23 mcg/actuation nasal ea spray,suspension (Flonase Allergy Relief) fluticasone propionate 110 1 puff inhalation BID #12 grams 06/25/23 06/25/23 mcg/actuation HFA aerosol inhaler (Flovent HFA) prednisone 20 mg tablet 60 mg PO DAILY 5 days #15 tabs 07/09/23 Previous Rx's Medication Instructions Recorded albuterol sulfate 90 mcg/actuation 2 puff inhalation Q4H PRN #8.5 07/18/22 aerosol inhaler grams albuterol sulfate 2.5 mg/3 mL 2.5 mg (3 mL) inhalation Q6H PRN 03/28/23 (0.083 %) solution for nebulization shortness of breath or wheezing #90 mL fluticasone propionate 50 1 spray intranasal BID 90 days #3 05/16/23 mcg/actuation nasal ea spray,suspension (Flonase Allergy Relief) fluticasone propionate 110 1 puff inhalation BID #12 grams 06/25/23 mcg/actuation HFA aerosol inhaler (Flovent HFA) prednisone 20 mg tablet 60 mg PO DAILY 5 days #15 tabs 07/09/23 Allergies Allergy/AdvReac Type Severity Reaction Status Date / Time varicella-zoster virus Allergy Intermediate Face Verified 06/25/23 11:37 glycoprotein E, recombinant Numbness Latex, Natural Rubber Allergy Mild Verified 06/25/23 11:37 General Stated Complaint: SOB ANDREY: 3 Review of Systems All systems reviewed & are unremarkable except as noted in HPI and below Constitutional Constitutional: Denies chills, Denies fever(s) and Denies weakness Cardiovascular Cardiovascular: Denies chest pain Gastrointestinal Gastrointestinal: Denies abdominal pain, Denies nausea and Denies vomiting Musculoskeletal Musculoskeletal: Denies joint swelling Neurologic Neurologic: Denies weakness PFSH All Active Problems (Updated 07/09/23 @ 06:01 by Randolph Weaver MD) Asthma exacerbation (Acute) Elevated blood pressure reading (Acute) Chronic rhinitis (Chronic) with nasal polyp Mild persistent asthma (Chronic) Hyperlipidemia (Chronic) Medical History (Updated 07/09/23 @ 06:01 by Randolph Weaver MD) Essential hypertension Nasal polyps Prediabetes Surgical History S/P colonoscopy (07/29/22) S/P nasal septoplasty (02/06/04) With bilateral endoscopic anterior and posterior ethmoidectomies Family History Mother Essential hypertension at 92 Father , at 76 Asthma Sister No problems noted. Sister No problems noted. Sister No problems noted. Brother , in his 70s Heart disease Brother Essential hypertension Brother No problems noted. Son No problems noted. Daughter No problems noted. Daughter , at 9 of brain tumor Brain tumor Maternal Grandfather , at 72 Heart disease Maternal Grandmother , at 86 No problems noted. Paternal Grandfather No problems noted. Paternal Grandmother , at 85 No problems noted. Social History Smoking/Tobacco Use Status: Never Second Hand Exposure: Yes Smoking risk assessment performed?: Yes Alcohol Intake: never Drug use: Never Substance use type: does not use Caregiver/Support person: No Household members: spouse Housing: house Communication Needs: None Do you need help understanding health information?: Rarely current occupation: [employer] Pets and animals: No Do you think of yourself as: straight/heterosexual Current gender identity: female What is your relationship status?: How often do you talk on the phone with friends or family?: once per week How often do you get together with friends or relatives?: decline to answer How often do you attend hoahaoism or adventism services?: decline to answer Do you belong to any clubs or organized social groups?: no Panel score (0-1 are the most socially isolated patients): 1 What type of physical activity do you participate in: walking and bicycling Duration: 15-30 minutes/day Frequency: 5-6 times per week Areli/Uatsdin: None Special areli needs: No Seatbelt use: always Helmet use: No Drive intox or ride w/intox driver/guide: No Do you feel safe at home: Yes Do you feel safe in your relationship?: Yes Victim of physical abuse: No Victim of emotional abuse: No Victim of sexual abuse: No Would you like helpful sources: No Female Reproductive History Menstrual Date of menopause: 02/27/09 History History 3 Para 3 Hx # Term Pregnancies 3 Multiple births Hx # Pregnancies Ectopic pregnancies AB induced Hx Number of Living Children 2 AB spontaneous Exam Const General: no acute distress Orientation: alert HENMT Head: normal to inspection Ears: external ears normal General nose exam: external nose normal Mouth: moist mucous membranes Eyes General: appearance normal, both eyes and all related structures Neck Neck: normal visual inspection Resp Effort & Inspection: normal respiratory effort and able to speak in complete sentences Auscultation: wheezes Cardio Jugular venous pressure: no JVD Rate: regular rate Heart Sounds: no murmurs Skin General skin exam: no rashes or lesions noted Neuro General: patient alert and patient oriented x3 Extrem General: normal to inspection Psych Mental Status: mental status grossly normal Course Vital Signs Vital signs: Vital Signs Temperature 36.6 C 07/09/23 05:02 Pulse 101 H 07/09/23 05:02 Respiratory Rate 20 07/09/23 05:02 Blood Pressure 148/127 H 07/09/23 05:02 Pulse Oximetry 99 07/09/23 05:02 Temperature 36.6 C 07/09/23 05:02 Pulse 100 H 07/09/23 05:07 Respiratory Rate 20 07/09/23 05:07 Respiratory Effort Labored 07/09/23 05:07 Respiratory Depth Normal 07/09/23 05:07 Respiratory Pattern Tachypnea 07/09/23 05:07 Blood Pressure 148/127 H 07/09/23 05:07 Blood Pressure Position Sitting 07/09/23 05:07 Pulse Oximetry 98 07/09/23 05:07 Oxygen Delivery Method Room Air 07/09/23 05:07 Pain Level 0 07/09/23 05:07
[2023-07-09] MEDS: methylPREDNISolone SUCC 125 MG VIAL IVP (05:17)
[2023-07-09] MEDS: Albuterol/Ipratropium 3 ML UPD VIAL UPD ×2 (05:19→05:51)
== END 2023-07-09 06:37 | disposition home or self-care (01) ==
PROVIDERS: Emergency Provider Emergency Medicine; PCP Nurse Practitioner Family
DX: J45.901 Unspecified asthma with (acute) exacerbation (principal); E11.9 Type 2 diabetes mellitus without complications; E78.5 Hyperlipidemia, unspecified; Z20.822 Contact with and (suspected) exposure to COVID-19
CPT/HCPCS: 94640; 96374; 99283; J2930; J7620

== ENCOUNTER 2024-01-21 05:19 | Outpatient (CLI) | payer MEDICARE, SELFPAY ==
[2024-01-21 13:25] LABS: Anion Gap 11.6 mmol/L (3-11); BUN 12 mg/dL (7-18); CO2 25.4 mmol/L (21.0-32.0); CREATININE 0.9 mg/dL (0.55-1.02); Chloride 104 mmol/L (98-107); Estimated GFR 70.51 (mL/min/1.73m2); Glucose 107 mg/dL (74-106); Potassium 3.6 mmol/L (3.5-5.1); Sodium 141 mmol/L (136-145)
[2024-01-22 09:13] LABS: Hepatitis C Ab w Rflx HCV PCR Negative (Negative)
[2024-01-22 19:21] LABS: Calculated LDL 165 mg/dL (<100); Cholesterol 253 mg/dL (<200); HDL Cholesterol 58 mg/dL (40-60); Triglyceride 153 mg/dL (<150)
== END 2024-01-21 05:20 | disposition home or self-care (01) ==
LOC: LOS 05:19
PROVIDERS: PCP Nurse Practitioner Family; Visit Provider Nurse Practitioner Family
DX: R73.03 Prediabetes (principal); Z00.00 Encounter for general adult medical examination without abnormal findings; E78.5 Hyperlipidemia, unspecified
CPT/HCPCS: 36415; 80048; 80061; 86803; 83036

== ENCOUNTER 2024-02-16 07:51 | Outpatient (CLI) | payer MEDICARE, SELFPAY ==
[2024-02-16 12:47] LABS: Anion Gap 7.3 mmol/L (3-11); BUN 17 mg/dL (7-18); CO2 31.7 mmol/L (21.0-32.0); CREATININE 0.9 mg/dL (0.55-1.02); Calcium 9.1 mg/dL (8.5-10.1); Chloride 99 mmol/L (98-107); Estimated GFR 70.51 (mL/min/1.73m2); Glucose 101 mg/dL (74-106); Sodium 138 mmol/L (136-145)
[2024-02-16 12:50] LABS: Potassium 2.6 mmol/L (3.5-5.1)
== END 2024-02-16 07:52 | disposition home or self-care (01) ==
LOC: LOS 07:51
PROVIDERS: PCP Nurse Practitioner Family; Referring Provider Nurse Practitioner Family; Visit Provider Nurse Practitioner Family
DX: I10 Essential (primary) hypertension (principal)
CPT/HCPCS: 36415; 80048

== ENCOUNTER 2024-02-16 17:18 | Emergency (ER) | payer MEDICARE, SELFPAY ==
[2024-02-16] VITALS (31 sets, daily range): BP systolic 117–159; BP diastolic 68–97; PULSE 57–97; RESP 13–28; TEMP 37; O2SAT 94–96
--- NOTE | 2024-02-16 17:15 | RT.EKG_ITS ---
APPROVED REPORT Exam: Resting ECG Reason for Exam: Hypokalemia Patient Location: E HR:94 bpm ECG Measurements Heart Rate 94 AXIS TN 159 P 2 QRSd 94 QRS -15 QT 373 T 10 QTc 466 Conclusion Sinus rhythm...normal P axis, V-rate 60- 99 Low voltage, precordial leads...precordial leads <1.0mV Narrow complex normal sinus rhythm at a rate of 94. Left axis deviation no LVH based on voltage. Lo w voltage. TN and QTc within normal limits. T wave flattening in lead III and T wave inversions in V2 through V5. No prior for comparison.
--- NOTE | 2024-02-16 17:21 | ED.GENADUL_ITS ---
Discharge Plan Disposition Patient Disposition: Home Discharge Details Clinical Impression: Acute hypokalemia Primary Care Provider: Farnaz Riddle ED Provider: Jose M Hensley Home Meds and New Rx's Prescriptions: Continued albuterol sulfate 90 mcg/actuation HFA aerosol inhaler 2 puff Inhalation Q4H PRN Qty: 8.5 4RF albuterol sulfate 2.5 mg /3 mL (0.083 %) solution for nebulization 2.5 mg IH Q6H PRN (Reason: shortness of breath or wheezing) Qty: 90 4RF fluticasone propionate [Flonase Allergy Relief] 50 mcg/actuation spray,suspension 1 spray intranasal BID 90 Days Qty: 3 3RF Rx Instructions: administer into each nostril Arnuity Ellipta 100 mcg/actuation blister with device 1 inh inhalation DAILY fluticasone furoate 100 mcg/actuation blister with device 1 inh inhalation DAILY Qty: 90 3RF Discontinued hydrochlorothiazide 25 mg tablet 25 mg PO DAILY Qty: 90 3RF Hold Instructions: Hypokalemia Discharge Instructions Instructions: Hypokalemia (ED) Additional Instructions: You were seen in the emergency department your low potassium. Please discontinue taking your hydrochlorothiazide until you are seen later this week by her primary care provider. As we discussed if you develop chest pain or shortness of breath or if you pass out please return to the emergency department. Discharge Data Discharge Date/Time-TO BE ENTERED AT DEPARTURE: 02/16/24 21:02 HPI General Date/Time Provider Initiated Documentation: 02/16/24 17:20 . HPI Narrative: MDM This is an overall very well-appearing normothermic and not tachycardic 68-year-old female with no complaints beyond outpatient abnormal hypokalemia with a serum potassium of 2.6 for which patient will receive repeat labs with likely oral and IV repletion in the setting of her reassuring normal QTc. No syncope to suggest prolonged QTc and no palpitations. No chest pain to suggest ACS SO I did not check a troponin. Patient is not on any diuretics but is on hydrochlorothiazide. Given that she has had blood pressure readings at home down to 99 mmHg systolic will have patient hold hydrochlorothiazide. Furthermore she seems to have been successful at initiating dietary modifications as she has lost 10 pounds over the past month and health salts and sweets. She is not vomiting to suggest increased risk for ongoing potassium losses so I do not feel that she needs to be discharged on outpatient potassium. No pain on proportion to suggest necrotizing soft tissue infection. No dysuria no frequency so doubt UTI. No vomiting nor abdominal pain to suggest intra- abdominal infection. No shortness of breath to suggest PE. 5:56 PM CBC lacks anemia thrombocytopenia and leukocytosis. Potassium reported at 2.6 for which patient will receive IV and oral repletion. I have asked health gun[employer] spray unit feeder Rachel to have the patient seen later this week by her primary care provider for repeat blood pressure check. 6:07 PM Normal reassuring magnesium. Mild bump in creatinine compared to earlier this morning. Mild hyperglycemia but no anion gap and normal bicarbonate??not consistent with DKA. 8:53 PM Patient received her repletion potassium uneventfully. Given no vomiting and discontinued hydrochlorothiazide patient is not at risk for ongoing potassium losses so I did not repeat a potassium level. Patient and I discussed return to the ED for any syncope nausea vomiting chest pain or shortness of breath. Patient understood her return indications and was discharged with empiric trial of expectant outpatient management. Chronic conditions affecting the care of the patient: Hypertension History obtained from an outside historian: N/A External record review: N/A Diagnostic interpretations performed by me: Per my independent interpretation EKG shows: Narrow complex normal sinus rhythm at a rate of 94. Left axis deviation no LVH based on voltage. Low voltage. DE and QTc within normal limits. T wave flattening in lead III and T wave inversions in V2 through V5. No prior for comparison. ]Medications: Potassium Social determinants of health affecting disposition: N/A Management discussed with: N/A Treatment/interventions considered: N/A Response to therapies provided: N/A HPI This is a 68-year-old female with a history of hypertension hyperlipidemia arrived to the emergency department via private vehicle with her in the setting of hypokalemia. Patient has been on hydrochlorothiazide for the past 1 month. She had routine outpatient labs checked earlier today and her potassium was 2.6. She denies any complaints. No fevers shortness of breath chest pain syncope. She denies routine tobacco ethanol, and illicits. She has lost weight over the past month that she is cut out sweets and salt. She does note that her blood pressures at home have ranged from 99 to 120 mmHg systolic. Exam General: Well-appearing in no acute distress speaking in complete sentences. Head: Normocephalic, atraumatic. Eye: Extraocular eye movements intact. No conjunctival injection. No scleral icterus. Ear, nose, mouth, throat: Grossly normal inspection. Normal voice, handling secretions normally. Neck: Trachea midline. Cardiovascular: Well-perfused distal extremities. Regular rate and rhythm. Respiratory: Nonlabored respiration. Clear lungs bilaterally Gastrointestinal: Nondistended abdomen. Soft nontender. Musculoskeletal: No edema. Moving all 4 extremities spontaneously. Skin: Normal for age and race, grossly normal temperature and turgor. No acute rash. Neurologic: Alert and appropriate, no apparent acute deficits. Psychiatric: Mood and manner are appropriate. Grooming and personal hygiene are appropriate. Related Data Home Medications Medication Instructions Recorded Confirmed albuterol sulfate 90 mcg/actuation 2 puff inhalation Q4H PRN #8.5 07/18/22 02/16/24 aerosol inhaler grams albuterol sulfate 2.5 mg/3 mL 2.5 mg (3 mL) inhalation Q6H PRN 03/28/23 02/16/24 (0.083 %) solution for nebulization shortness of breath or wheezing #90 mL fluticasone propionate 50 1 spray intranasal BID 90 days #3 05/16/23 02/16/24 mcg/actuation nasal ea spray,suspension (Flonase Allergy Relief) fluticasone furoate 100 1 inh inhalation DAILY #90 ea 09/17/23 02/16/24 mcg/actuation blister powder for inhalation fluticasone furoate 100 1 inh inhalation DAILY 01/30/24 02/16/24 mcg/actuation blister powder for inhalation (Arnuity Ellipta) Previous Rx's Medication Instructions Recorded albuterol sulfate 90 mcg/actuation 2 puff inhalation Q4H PRN #8.5 07/18/22 aerosol inhaler grams albuterol sulfate 2.5 mg/3 mL 2.5 mg (3 mL) inhalation Q6H PRN 03/28/23 (0.083 %) solution for nebulization shortness of breath or wheezing #90 mL fluticasone propionate 50 1 spray intranasal BID 90 days #3 05/16/23 mcg/actuation nasal ea spray,suspension (Flonase Allergy Relief) fluticasone furoate 100 1 inh inhalation DAILY #90 ea 09/17/23 mcg/actuation blister powder for inhalation Allergies Allergy/AdvReac Type Severity Reaction Status Date / Time varicella-zoster virus Allergy Intermediate Face Verified 02/16/24 17:45 glycoprotein E, recombinant Numbness Latex, Natural Rubber Allergy Mild Skin Rash Verified 02/16/24 17:45 General ANDREY: 3 Medical Decision Making Quality:SDOH Health Related Social Needs: No Data to Display PFSH All Active Problems (Updated 02/16/24 @ 18:04 by Jose M Hensley MD) Acute hypokalemia (Acute) Essential hypertension (Chronic) Mild persistent asthma (Chronic) Hyperlipidemia (Chronic) Prediabetes (Chronic) Chronic rhinitis (Chronic) with nasal polyp Medical History Nasal polyps Prediabetes Surgical History S/P nasal septoplasty (02/06/04) With bilateral endoscopic anterior and posterior ethmoidectomies S/P colonoscopy (07/29/22) Family History (Updated 01/19/24 @ 07:29 by Farnaz Riddle NP) Mother Hypertension Father , at 76 Asthma Sister No problems noted. Sister No problems noted. Sister No problems noted. Brother , in his 70s Heart disease Brother Essential hypertension Brother Asthma Son No problems noted. Daughter No problems noted. Daughter , at 9 of brain tumor Brain tumor Maternal Grandfather , at 72 Heart disease Maternal Grandmother , at 86 No problems noted. Paternal Grandfather No problems noted. Paternal Grandmother , at 85 No problems noted. Social History (Updated 01/28/24 @ 15:18 by Lakia Peter) Smoking/Tobacco Use Status: Never Second Hand Exposure: Yes Smoking risk assessment performed?: Yes Alcohol Intake: never Drug use: Never Substance use type: does not use Adopted: No Caregiver/Support person: No Household members: spouse Housing: house Number of Children: 3 number of grandchildren: 4 Communication Needs: None Education Level: high school Do you need help understanding health information?: Rarely current occupation: [employer] Pets and animals: No Do you think of yourself as: straight/heterosexual Current gender identity: female What is your relationship status?: How often do you talk on the phone with friends or family?: decline to answer How often do you get together with friends or relatives?: decline to answer How often do you attend congregational or muslim services?: decline to answer Do you belong to any clubs or organized social groups?: no Panel score (0-1 are the most socially isolated patients): 1 What type of physical activity do you participate in: walking and bicycling Duration: 15-30 minutes/day Frequency: daily Areli/Mosque: None Special areli needs: No Seatbelt use: always Helmet use: No Drive intox or ride w/intox experienced truck driver: No Firearms in home: Yes Firearms unloaded and locked: Yes Do you feel safe at home: Yes Do you feel safe in your relationship?: Yes Victim of physical abuse: No Victim of emotional abuse: No Victim of sexual abuse: No Female Reproductive History Menstrual Date of menopause: 02/27/09 History History 3 Para 3 Hx # Term Pregnancies 3 Multiple births Hx # Pregnancies Ectopic pregnancies AB induced Hx Number of Living Children 2 AB spontaneous
[2024-02-16 17:44] LABS: Abs Immature Grans 0.02 10^3/uL (0.0-0.06); Absolute Basophil Count 0.03 10^3/uL (0.0-0.2); Absolute Eosinophil Count 0.12 10^3/uL (0.0-0.7); Absolute Lymphocyte Count 2.01 10^3/uL (1.2-3.4); Absolute Monocyte Count 0.56 10^3/uL (0.1-0.8); Absolute Neutrophil Count 5.04 10^3/uL (1.2-6.7); Basophils % 0.4 %; Eosinophils % 1.5 %; HCT 39.3 % (36.0-46.0); HGB 12.9 g/dL (11.2-15.7); Immature Grans % 0.3 %; Lymphocytes % 25.8 %; MCH 29.3 pg (27.0-33.0); MCHC 32.8 % (32.0-36.0); MCV 89 fL (80-95); Monocytes % 7.2 %; Neutrophils % 64.8 %; Platelet Count 321 10^3/uL (130-400); RBC 4.41 10^6/uL (3.93-5.22); RDW 12.6 % (11.7-14.6); RDW-SD 41.4 fL; WBC 7.78 10^3/uL (4.4-10.8)
[2024-02-16 17:55] LABS: BUN 20 mg/dL (7-18); CREATININE 1.2 mg/dL (0.55-1.02); Calcium 9.1 mg/dL (8.5-10.1); Chloride 100 mmol/L (98-107); Estimated GFR 49.92 (mL/min/1.73m2); Glucose 205 mg/dL (74-106); Magnesium 2.1 mg/dL (1.8-2.4); Sodium 137 mmol/L (136-145)
[2024-02-16 17:57] LABS: Potassium 2.6 mmol/L (3.5-5.1)
--- NOTE | 2024-02-16 18:07 | NUR.NOTE ---
Referral faxed to PCP for low potassium later this week. Nursing Note:
[2024-02-16] MEDS: Potassium Chloride 20 MEQ TABCR 40 MEQ PO ×2 (19:08→19:20)
[2024-02-16] MEDS: POTASSIUM CHLORIDE/0.9% NACL 1,000 ML 1000 MEQ IV (19:20)
== END 2024-02-16 21:02 | disposition home or self-care (01) ==
PROVIDERS: Emergency Provider Emergency Medicine; PCP Nurse Practitioner Family
DX: E87.6 Hypokalemia (principal); I10 Essential (primary) hypertension
CPT/HCPCS: 36415; 80048; 93005; 96360; 99284; 83735; 85025; 93010; 99283

== ENCOUNTER → 2024-02-26 02:15 | Outpatient (CLI) | payer MEDICARE, SELFPAY ==
--- NOTE | 2024-02-26 07:30 | DI.MAMMO_ITS ---
Exam(s) MAMMO SCREENING EXAM: MAMMO SCREENING CLINICAL HISTORY: screening, Z12.39 TECHNIQUE: Bilateral full field digital CC and MLO mammographic images were obtained with 3D tomosyn thesis and utilizing computer aided detection (CAD). COMPARISON: Available for comparison. FINDINGS: Masses/Architectural Distortion: None seen. Microcalcifications: No suspicious pleomorphic-type are seen. Skin Thickening/Nipple Retraction: None. IMPRESSION: 1. No significant interval change with no specific features of malignancy noted. 2. Unless there is more urgent need, screening mammography is recommended, as per [employer] guidelines. BI-RADS Category 1 - Negative Breast Density - Category A - Almost entirely fatty Breast density category C or D implies that the patient has dense breast tissue. Dense breast tissue is very common and is not abnormal but dense breast tissue can make it harder to find cancer on a ma mmogram. Also, dense breast tissue may increase their breast cancer risk. This information about the result of the mammogram report was provided to the patient to raise their awareness. Use this report when you speak with the patient about their risks for breast cancer, which includes their family hist ory. At that time, you may recommend for more screening tests (Ultrasound or MRI) as they might be us eful based on their risk. A negative radiographic report should not delay biopsy if a dominant or clinically suspicious mass is present. Up to ten percent of cancers are not identified on mammography. A negative report may reinforce clinical impression. Adenosis and dense breasts may obscure an underlying neoplasm. False positive reports average 6 to 10%. Patient will receive a letter notifying them of these results.
--- NOTE | 2024-02-26 07:30 | DI.DEXA_ITS ---
Exam(s) XR DEXA BONE DENSITY W/WO LIN EXAM: XR DEXA BONE DENSITY W/WO LIN CLINICAL HISTORY: osteoporosis screening, POSTMENOPAUSAL STATUS, Z78.0 TECHNIQUE: COMPARISON: No exams were available for comparison FINDINGS: Lateral Spine Image: Unremarkable. No compression deformities identified. Left hip: Total T-Score: -2.4 Total Z-Score: -1.1 T- and Z-scores: Findings are consistent with osteopenia. There is osteoporosis in the femoral neck with a T-score of -2.6. Lumbar Spine: Total T-Score: -3.1 Total Z-Score: -1.2 T- and Z-scores: Findings are consistent with osteoporosis. IMPRESSION: Osteoporosis in the lumbar spine in the femoral neck.
== END ==
PROVIDERS: PCP Nurse Practitioner Family; Visit Provider Nurse Practitioner Family
DX: Z12.31 Encounter for screening mammogram for malignant neoplasm of breast (principal); Z78.0 Asymptomatic menopausal state; Z13.820 Encounter for screening for osteoporosis; M81.0 Age-related osteoporosis without current pathological fracture
CPT/HCPCS: 77063; 77067; 77080

== ENCOUNTER 2024-03-03 05:24 | Outpatient (CLI) | payer MEDICARE, SELFPAY ==
[2024-03-03 12:51] LABS: Potassium 3.7 mmol/L (3.5-5.1); Vitamin D 25 Total 19.2 ng/mL (30-100)
[2024-03-03 18:44] LABS: HIV-1/2 Ag & Ab Screen Negative (Negative)
[2024-03-03 18:47] LABS: HBs Antibody, Quant 27.1 mIU/mL (See Note); Hep B Surface Ab Positive (See Note); Hepatitis B Core Antibody Negative (Negative); Hepatitis B Surface Antigen Negative (Negative)
== END 2024-03-03 05:25 | disposition home or self-care (01) ==
LOC: LOS 05:24
PROVIDERS: PCP Nurse Practitioner Family; Visit Provider Nurse Practitioner Family
DX: M81.0 Age-related osteoporosis without current pathological fracture (principal); E87.6 Hypokalemia; I10 Essential (primary) hypertension; Z11.51 Encounter for screening for human papillomavirus (HPV); Z01.419 Encounter for gynecological examination (general) (routine) without abnormal findings
CPT/HCPCS: 36415; 82306; 86704; 86706; 87340; 87389; 84132

== ENCOUNTER 2024-08-12 02:00 | Outpatient (CLI) | payer MEDICARE, SELFPAY ==
[2024-08-12 13:23] LABS: Calculated LDL 141 mg/dL (<100); Cholesterol 216 mg/dL (<200); HDL Cholesterol 56 mg/dL (40-60); Triglyceride 96 mg/dL (<150)
[2024-08-12 13:43] LABS: Hemoglobin A1C 5.8 % (<5.7)
== END 2024-08-12 02:01 | disposition home or self-care (01) ==
LOC: LOS 02:00
PROVIDERS: PCP Nurse Practitioner Family; Visit Provider Nurse Practitioner Family
DX: R73.03 Prediabetes (principal); E78.5 Hyperlipidemia, unspecified
CPT/HCPCS: 36415; 80061; 83036

== ENCOUNTER 2024-10-28 02:47 | Outpatient (CLI) | payer MEDICARE, SELFPAY ==
--- NOTE | 2024-10-28 07:30 | DI.RAD_ITS ---
Exam(s) XR HIP RT COMPLETE AP PELVIS EXAM: XR HIP RT COMPLETE AP PELVIS CLINICAL HISTORY: evaluate pathology,rt hip and groin pain,,r10.31. TECHNIQUE: 2D digital imaging was performed of the right hip. Two images were obtained. AP pelvis a nd lateral right hip views were obtained. COMPARISON: No exams were available for comparison FINDINGS: BONES: No acute fracture is present. No bony destructive lesion is seen. JOINTS: No dislocation present. There is mild joint space narrowing of the hips bilaterally. The rig ht hip is otherwise well maintained. The sacroiliac joints are unremarkable as is the symphysis pubi s. SOFT TISSUE: Normal. IMPRESSION: Mild joint space narrowing of the right hip. DATA REPOSITORY: RADIATION DOSE DELIVERED:
== END 2024-10-28 03:07 ==
LOC: DI 02:47
PROVIDERS: PCP Nurse Practitioner Family; Visit Provider Nurse Practitioner Family
DX: M16.11 Unilateral primary osteoarthritis, right hip (principal)
CPT/HCPCS: 73502

== ENCOUNTER 2024-11-19 04:28 | Emergency (ER) | payer MEDICARE, SELFPAY ==
[2024-11-19 04:30] VITALS: BP 166/92; PULSE 85; RESP 17; TEMP 36.6; O2SAT 98
[2024-11-19 04:37] VITALS: RESP 15
--- NOTE | 2024-11-19 04:54 | ED.GENADUL_ITS ---
Discharge Plan Disposition Patient Disposition: Home Condition: Good Discharge Details Clinical Impression: Generalized body aches Primary Care Provider: Farnaz Riddle ED Provider: Frida Salvador Home Meds and New Rx's Prescriptions: Continued albuterol sulfate 2.5 mg /3 mL (0.083 %) solution for nebulization 2.5 mg IH Q6H PRN (Reason: shortness of breath or wheezing) Qty: 90 4RF albuterol sulfate 90 mcg/actuation HFA aerosol inhaler 2 puff Inhalation Q4H PRN Qty: 8.5 4RF fluticasone propionate [Flonase Allergy Relief] 50 mcg/actuation spray,suspension 1 spray intranasal BID 90 Days Qty: 3 3RF Rx Instructions: administer into each nostril cholecalciferol (vitamin D3) 50 mcg (2,000 unit) capsule 2,000 unit PO DAILY Qty: 90 3RF Rx Instructions: Take 1 daily after the 8 weeks of the 50,000unit dose Arnuity Ellipta 100 mcg/actuation blister with device 1 inh inhalation DAILY Qty: 90 3RF calcium carbonate [Calcium 600] 600 mg calcium (1,500 mg) tablet 600 mg PO DAILY Discontinued alendronate [Fosamax] 70 mg tablet 70 mg PO QWEEK Qty: 15 3RF Discharge Instructions Instructions: Acute Pain, Adult Additional Instructions: Tylenol and ibuprofen over the counter for symptoms; follow the directions on the bottle. Call your primary care doctor today to schedule an appointment for within the following 72 hours to followup on your visit here. Return to the emergency department for new or worsening symptoms. Referrals: Farnaz Riddle NP [Primary Care Provider] - [facility] General Mode of arrival: ambulatory . Date/Time Provider Initiated Documentation: 11/19/24 04:30 . Limitations to Documentation: no limitations . Information obtained by: patient and old records reviewed ([facility] care and PCP visit notes oct 2024) . HPI Narrative: 69yo F with hx asthma, osteoporosis, presenting for diffuse body and joint aches and generalized weakness. Symptoms have been present for the last few weeks and not improving. Has been on fosamax since February, stopped a little over a week ago after seeing her PCP as there was concern this may be causing her symptoms. Pain is achey and present in her hips, shoulders, arms, and back. Seems worse in the morning, had difficulty getting out of bed today and had to help her up. Tried ibuprofen without improvement. Vomited x 1 after taking her calcium pill, otherwise no nausea or vomiting. Diminished appetite. No fevers, chills, rash, abdominal pain, diarrhea, focal weakness, cough, rhinnorhea, or other concerns. Related Data Home Medications ?Medication ?Instructions ?Recorded ?Confirmed cholecalciferol (vitamin D3) 50 2,000 unit PO DAILY #90 caps 03/10/24 11/19/24 mcg (2,000 unit) capsule albuterol sulfate 2.5 mg/3 mL 2.5 mg (3 mL) inhalation Q6H PRN 08/16/24 11/19/24 (0.083 %) solution for nebulization shortness of breath or wheezing #90 mL albuterol sulfate 90 mcg/actuation 2 puff inhalation Q4H PRN #8.5 08/16/24 11/19/24 aerosol inhaler grams fluticasone propionate 50 1 spray intranasal BID 90 days #3 08/16/24 11/19/24 mcg/actuation nasal ea spray,suspension (Flonase Allergy Relief) fluticasone furoate 100 1 inh inhalation DAILY #90 ea 10/05/24 11/19/24 mcg/actuation blister powder for inhalation (Arnuity Ellipta) calcium carbonate (Calcium 600) 600 mg PO DAILY 11/19/24 11/19/24 Previous Rx's ?Medication ?Instructions ?Recorded cholecalciferol (vitamin D3) 50 2,000 unit PO DAILY #90 caps 03/10/24 mcg (2,000 unit) capsule albuterol sulfate 2.5 mg/3 mL 2.5 mg (3 mL) inhalation Q6H PRN 08/16/24 (0.083 %) solution for nebulization shortness of breath or wheezing #90 mL albuterol sulfate 90 mcg/actuation 2 puff inhalation Q4H PRN #8.5 08/16/24 aerosol inhaler grams fluticasone propionate 50 1 spray intranasal BID 90 days #3 08/16/24 mcg/actuation nasal ea spray,suspension (Flonase Allergy Relief) fluticasone furoate 100 1 inh inhalation DAILY #90 ea 10/05/24 mcg/actuation blister powder for inhalation (Arnuity Ellipta) Allergies Allergy/AdvReac Type Severity Reaction Status Date / Time varicella-zoster virus Allergy Intermediate Face Verified 11/19/24 04:59 glycoprotein E, recombinant Numbness Latex, Natural Rubber Allergy Mild Skin Rash Verified 11/19/24 04:59 General Stated Complaint: GenMedical ANDREY: 3 Review of Systems Narrative: see HPI Exam Narrative Exam Narrative: General: Alert, well appearing, well nourished, in no acute distress. Sitting up on edge of bed. Bright affect, gesturing while talking. Head: Normocephalic, atraumatic Neck: Trachea midline, ?Neck supple. Cardiac: ?RRR, no murmurs appreciated Resp: No respiratory distress. CTAB. Abd: ?Soft, non-distended, nontender Extremities: ?No deformities.? No peripheral edema. Neurologic: GCS 15. ? 5/5 strength bilateral upper and lower extremities. Ambu lates easily independently with steady gait. Course Vital Signs Vital signs: Vital Signs Temperature 36.6 C 11/19/24 04:30 Pulse 85 11/19/24 04:30 Respiratory Rate 17 11/19/24 04:30 Blood Pressure 166/92 H 11/19/24 04:30 Pulse Oximetry 98 11/19/24 04:30 Temperature 36.6 C 11/19/24 04:30 Temperature Source Oral 11/19/24 04:30 Pulse 85 11/19/24 04:30 Respiratory Rate 15 11/19/24 04:37 Respiratory Effort Normal, Non-Labored 11/19/24 04:37 Respiratory Depth Normal 11/19/24 04:37 Respiratory Pattern Normal 11/19/24 04:37 Blood Pressure 166/92 H 11/19/24 04:30 Blood Pressure Position Sitting 11/19/24 04:30 Pulse Oximetry 98 11/19/24 04:30 Oxygen Delivery Method Room Air 11/19/24 04:30 Oxygen Flow Rate 0 11/19/24 04:30 Pain Level 7 11/19/24 04:30 Medical Decision Making 69yo F with hx asthma, osteoporosis, presenting for diffuse body and joint aches and generalized weakness for the last few weeks; stopped fosamax a little over a week ago which has not helped. Hypertensive on arrival, vital signs otherwise reassuring. Very well appearing on exam, non-toxic, not septic, no rashes. Good strength. Will send flu swab (high community prevalence) though less likely, as well as CBC & CMP. CBC reassuring with no leukocytosis or anemia, CMP with no hypo/hypercalcemia or hypokalemia. Given 15mg IM toradol for pain. Unclear etiology of symptoms however appropriate for PCP followup for further workup and management. Discharged home; discharge instructions and return precautions were reviewed with patient who verbalized understanding. All questions were answered and she is in agreement with the plan. Lab Data Lab results reviewed: Yes I reviewed the patient's lab results. Labs: Laboratory Tests Range/Units 11/19/24 04:55 WBC (4.4-10.8) 10^3/uL 10.29 RBC (3.93-5.22) 10^6/uL 4.12 Hgb (11.2-15.7) g/dL 11.7 Hct (36.0-46.0) % 37.0 MCV (80-95) fL 90 MCH (27.0-33.0) pg 28.4 MCHC (32.0-36.0) % 31.6 L RDW (11.7-14.6) % 12.1 Plt Count (130-400) 10^3/uL 435 H MPV (8.0-11.0) fL 8.6 Immature Gran % % 0.2 Neutrophils % % 72.9 Lymphocytes % % 12.8 Monocytes % % 8.8 Eosinophils % % 4.9 Basophils % % 0.4 Nucleated RBC % (0.0-0.3) % 0.0 Absolute Neutrophils (1.2-6.7) 10^3/uL 7.50 H Absolute Lymphocytes (1.2-3.4) 10^3/uL 1.32 Absolute Monocytes (0.1-0.8) 10^3/uL 0.91 H Absolute Eosinophils (0.0-0.7) 10^3/uL 0.50 Absolute Basophils (0.0-0.2) 10^3/uL 0.04 Sodium (136-145) mmol/L 138 Potassium (3.5-5.1) mmol/L 3.6 Chloride (98-107) mmol/L 102 Carbon Dioxide (21.0-32.0) mmol/L 25.0 Anion Gap (3-11) mmol/L 11.0 BUN (7-18) mg/dL 8 Creatinine (0.55-1.02) mg/dL 0.9 Est GFR (CKD-EPI 2020) (mL/min/1.73m2) 70.07 Glucose (74-106) mg/dL 116 H Calcium (8.5-10.1) mg/dL 8.8 Total Bilirubin (0.2-1.0) mg/dL 0.50 AST (15-37) U/L 9 L ALT (14-59) U/L 11 L Alkaline Phosphatase (46-116) U/L 77 Total Protein (6.4-8.2) g/dL 7.4 Albumin (3.4-5.0) g/dL 3.1 L Quality:SDOH Health Related Social Needs: No Data to Display PFSH All Active Problems (Updated 11/19/24 @ 05:07 by Frida Salvador MD) Generalized body aches (Acute) White coat syndrome without diagnosis of hypertension (Chronic) Osteoporosis (Chronic) Fosamax started 02/2024 Mild persistent asthma (Chronic) Hyperlipidemia (Chronic) Prediabetes (Chronic) Chronic rhinitis (Chronic) with nasal polyp Osteoarthritis of both hips (Chronic) Vitamin D deficiency (Chronic) Surgical History S/P nasal septoplasty (02/06/04) With bilateral endoscopic anterior and posterior ethmoidectomies S/P colonoscopy (07/29/22) Family History Mother Hypertension Father , at 76 Asthma Sister No problems noted. Sister No problems noted. Sister No problems noted. Brother , in his 70s Heart disease Brother Essential hypertension Brother Asthma Son No problems noted. Daughter No problems noted. Daughter , at 9 of brain tumor Brain tumor Maternal Grandfather , at 72 Heart disease Maternal Grandmother , at 86 No problems noted. Paternal Grandfather No problems noted. Paternal Grandmother , at 85 No problems noted. Social History Smoking/Tobacco Use Status: Never Second Hand Exposure: Yes Smoking risk assessment performed?: Yes Alcohol Intake: never Drug use: Never Substance use type: does not use Adopted: No Caregiver/Support person: No Household members: spouse Housing: house Number of Children: 3 number of grandchildren: 4 Communication Needs: None Education Level: high school Do you need help understanding health information?: Rarely current occupation: [employer] Pets and animals: No Do you think of yourself as: straight/heterosexual Current gender identity: female What is your relationship status?: How often do you talk on the phone with friends or family?: decline to answer How often do you get together with friends or relatives?: decline to answer How often do you attend latter day or moravian services?: decline to answer Do you belong to any clubs or organized social groups?: no Panel score (0-1 are the most socially isolated patients): 1 What type of physical activity do you participate in: walking and bicycling Duration: 15-30 minutes/day Frequency: daily Areli/Yazidism: None Special areli needs: No Seatbelt use: always Helmet use: No Drive intox or ride w/intox tour bus driver: No Firearms in home: Yes Firearms unloaded and locked: Yes Do you feel safe at home: Yes Do you feel safe in your relationship?: Yes Victim of physical abuse: No Victim of emotional abuse: No Victim of sexual abuse: No Female Reproductive History Menstrual Date of menopause: 02/27/09 History History 3 Para 3 Hx # Term Pregnancies 3 Multiple births Hx # Pregnancies Ectopic pregnancies AB induced Hx Number of Living Children 2 AB spontaneous
[2024-11-19 05:03] LABS: Abs Immature Grans 0.02 10^3/uL (0.0-0.06); Absolute Basophil Count 0.04 10^3/uL (0.0-0.2); Absolute Lymphocyte Count 1.32 10^3/uL (1.2-3.4); Absolute Monocyte Count 0.91 10^3/uL (0.1-0.8); Basophils % 0.4 %; Eosinophils % 4.9 %; HGB 11.7 g/dL (11.2-15.7); Immature Grans % 0.2 %; Lymphocytes % 12.8 %; MCH 28.4 pg (27.0-33.0); MCHC 31.6 % (32.0-36.0); MCV 90 fL (80-95); MPV 8.6 fL (8.0-11.0); Monocytes % 8.8 %; Neutrophils % 72.9 %; Platelet Count 435 10^3/uL (130-400); RBC 4.12 10^6/uL (3.93-5.22); RDW 12.1 % (11.7-14.6); RDW-SD 39.8 fL; WBC 10.29 10^3/uL (4.4-10.8)
[2024-11-19 05:18] LABS: ALT 11 U/L (14-59); AST 9 U/L (15-37); Albumin 3.1 g/dL (3.4-5.0); Alkaline Phosphatase 77 U/L (46-116); BUN 8 mg/dL (7-18); CREATININE 0.9 mg/dL (0.55-1.02); Calcium 8.8 mg/dL (8.5-10.1); Chloride 102 mmol/L (98-107); Estimated GFR 70.07 (mL/min/1.73m2); Glucose 116 mg/dL (74-106); Potassium 3.6 mmol/L (3.5-5.1); Sodium 138 mmol/L (136-145); Total Protein 7.4 g/dL (6.4-8.2)
[2024-11-19] MEDS: Ketorolac 15 MG/ML VIAL IM (05:28)
== END 2024-11-19 05:31 | disposition home or self-care (01) ==
PROVIDERS: Emergency Provider Student in an Organized Health Care Education/Training Program; PCP Nurse Practitioner Family
DX: M79.18 Myalgia, other site (principal)
CPT/HCPCS: 80053; 96372; 99284; 85025; 99283; J1885

== ENCOUNTER 2024-12-08 04:42 | Outpatient (CLI) | payer MEDICARE, SELFPAY ==
[2024-12-08 12:45] LABS: ESR 31 mm/hr (0-30)
[2024-12-08 13:00] LABS: ALT 14 U/L (14-59); AST 11 U/L (15-37); Albumin 3.1 g/dL (3.4-5.0); Alkaline Phosphatase 72 U/L (46-116); Anion Gap 6.5 mmol/L (3-11); BUN 10 mg/dL (7-18); Bilirubin, Total 0.4 mg/dL (0.2-1.0); C-Reactive Protein 3.19 mg/dL (<or=0.5); CO2 27.5 mmol/L (21.0-32.0); CREATININE 0.7 mg/dL (0.55-1.02); Calcium 9.1 mg/dL (8.5-10.1); Chloride 103 mmol/L (98-107); Estimated GFR 94.73 (mL/min/1.73m2); Glucose 93 mg/dL (74-106); Potassium 3.7 mmol/L (3.5-5.1); Sodium 137 mmol/L (136-145); Total Protein 7.4 g/dL (6.4-8.2)
[2024-12-08 22:27] LABS: Rheumatoid Factor <8.6 IU/mL (<12.0)
[2024-12-09 10:04] LABS: ANA Interpretation Positive (Negative); ANA Titer Pattern 1:80 Homogeneous
[2024-12-09 11:32] LABS: Lyme Ab w Rflx to Lyme Confirm Negative (Negative)
[2024-12-11 00:25] LABS: Anaplasma phagocytophilum Negative (Negative); B. miyamotoi PCR Negative (Negative); Babesia divergens/MO-1 Negative (Negative); Babesia duncani Negative (Negative); Babesia microti Negative (Negative); Ehrlichia chaffeensis Negative (Negative); Ehrlichia ewingii/canis Negative (Negative); Ehrlichia muris eauclairensis Negative (Negative)
== END 2024-12-08 04:43 | disposition home or self-care (01) ==
LOC: LOS 04:42
PROVIDERS: PCP Nurse Practitioner Family; Visit Provider Nurse Practitioner Family
DX: R52 Pain, unspecified (principal)
CPT/HCPCS: 36415; 80053; 82306; 85652; 87798; 85025; 86038; 86140; 86431; 86618

== ENCOUNTER 2024-12-23 02:41 | Outpatient (CLI) | payer MEDICARE, SELFPAY ==
[2024-12-23 13:18] LABS: Vitamin D 25 Total 31 ng/mL (30-100)
== END 2024-12-23 02:42 | disposition home or self-care (01) ==
LOC: LOS 02:41
PROVIDERS: PCP Nurse Practitioner Family; Visit Provider Nurse Practitioner Family
DX: R52 Pain, unspecified (principal); M35.3 Polymyalgia rheumatica
CPT/HCPCS: 36415; 82306

== ENCOUNTER 2025-02-28 02:39 | Outpatient (CLI) | payer MEDICARE, SELFPAY ==
--- NOTE | 2025-02-28 08:00 | DI.MAMMO_ITS ---
Exam(s) MAMMO SCREENING EXAM: MAMMO SCREENING CLINICAL HISTORY: screening,Z12.39 TECHNIQUE: Bilateral full field digital CC and MLO mammographic images were obtained with 3D tomosyn thesis and utilizing computer aided detection (CAD). COMPARISON: Available for comparison. FINDINGS: Masses/Architectural Distortion: No suspicious masses or areas of architectural distortion are presen t. Microcalcifications: No suspicious pleomorphic-type are seen. Skin Thickening/Nipple Retraction: None. IMPRESSION: 1. No significant interval change with no specific features of malignancy noted. 2. Unless there is more urgent need, screening mammography is recommended, as per [employer] guidelines. BI-RADS Category 1 - Negative Breast Density - Category A - The breast are almost entirely fatty. Breast density Category C or D implies that the patient has dense breast tissue. Dense breast tissue can make it harder to find cancer on a mammogram. Dense breast tissue is also associated with an incr eased risk of breast cancer. This information about the result of the mammogram report was provided to the patient to raise their awareness. Use this report when you speak with the patient about their risks for breast cancer, which includes their family history. At that time, you may recommend additional screening tests (Ultrasoun d or MRI) as these tests may add significant information. A negative radiographic report should not delay biopsy if a dominant or clinically suspicious mass is present. Up to ten percent of cancers are not identified on mammography. A negative report may reinforce clinical impression. Adenosis and dense breasts may obscure an underlying neoplasm. False positive reports average 6 to 10%. Patient will receive a letter notifying them of these results.
== END 2025-02-28 02:59 ==
LOC: DI 02:39
PROVIDERS: PCP Nurse Practitioner Family; Visit Provider Nurse Practitioner Family
DX: Z12.31 Encounter for screening mammogram for malignant neoplasm of breast (principal); R92.313 Mammographic fatty tissue density, bilateral breasts
CPT/HCPCS: 77063; 77067